=== PATIENT | female | born 1945 | race Caucasian/White ===

== ENCOUNTER 2021-02-27 08:03 | Day surgery (SDC) | payer OTHER, MEDICARE ==
[2021-02-25 15:00] VITALS: BMI 19.2
[2021-02-27 09:49] VITALS: BP 110/58; PULSE 65; TEMP 98.2
== END 2021-02-27 10:29 | disposition home or self-care (01) ==
LOC: FASU-ENDO 08:03
PROVIDERS: ATTEND Internal Medicine Gastroenterology
PROC: 0DJD8ZZ Inspection of Lower Intestinal Tract, Via Natural or Artificial Opening Endoscopic (ICD-10-PCS; principal; 2021-02-27 08:56)
DX: Z86.010 Personal history of colon polyps (principal); K57.30 Diverticulosis of large intestine without perforation or abscess without bleeding